=== PATIENT | female | born 1970 | race Native Hawaiian/Other Pacific Islander ===

== ENCOUNTER 2020-05-13 19:38 | Emergency (ER) | payer OTHER, MEDICAID, SELFPAY ==
[2020-05-13 19:42] VITALS: BP 154/72; PULSE 86; RESP 20; TEMP 36.3; O2SAT 99
[2020-05-13 19:54] VITALS: BP 150/73; PULSE 86; RESP 18; TEMP 36.3; O2SAT 96
--- NOTE | 2020-05-13 20:30 | ED.EAR ---
HPI - Ear Problem General Chief complaint: Ear Stated complaint: left ear pain Time Seen by Provider: 05/13/20 20:30 Source: patient Mode of arrival: Ambulatory Limitations: no limitations History of Present Illness HPI Narrative: The patient complains of left ear pain, intermittent for months. The pain is now persistent for the last several days. She has no drainage from the ear. The pain radiates to the left mandible. She has no URI symptoms, no sinus congestion, no allergies. She is a nonsmoker. She denies dental problems. She denies neck pain. She denies dysphagia. Related Data Previous Rx's Medication Instructions Recorded amoxicillin 500 mg PO TID #30 cap 05/13/20 Review of Systems Constitutional Constitutional: Denies chills, Denies fever(s) and Denies headache(s) Eyes Comments: No eye complaints ENT Ears, Nose, Mouth, and Throat: Denies dental pain, Denies ear discharge, Reports otalgia, Denies facial pain, Denies headache(s) and Denies sore throat Cardiovascular Cardiovascular: Denies chest pain and Denies dyspnea Respiratory Respiratory: Denies cough and Denies dyspnea Neurologic Neurologic: Denies headache(s) Patient History Medical History (Updated 05/13/20 @ 20:36 by Devonte Elder MD) Healthy adult Surgical History (Updated 05/13/20 @ 20:33 by Devonte Elder MD) No history of previous surgery Social History Smoking Status: Never smoker Smoking Status: Never smoker alcohol intake frequency: a few times a month Substance Use Type: does not use Exam Initial Vital Signs Initial Vital Signs: Vital Signs Temperature 97.4 F L 05/13/20 19:42 Pulse Rate 86 05/13/20 19:42 Respiratory Rate 20 05/13/20 19:42 Blood Pressure 154/72 H 05/13/20 19:42 Pulse Oximetry 99 05/13/20 19:42 Const General: cooperative and well developed Nutritional Appearance: well nourished [facility] Head: normal to inspection, normocephalic and atraumatic Ears: external ears normal and TM's normal bilaterally Nose: external nose normal Face and sinus: normal facial exam, sinuses tender and other (No mastoid tenderness.) Mouth: oral mucosae normal and lip normal Teeth and gingiva: other (Tenderness over tooth 17. #17 is only partially protruding from the gum.) Throat: posterior oropharynx normal Neck Neck: normal visual inspection, No anterior neck swelling and No lymphadenopathy Resp Auscultation: clear to auscultation bilaterally Cardio Rate: regular rate Rhythm: regular rhythm Heart Sounds: S1 normal, S2 normal, no click, no gallops, no murmurs and no rubs Pulses: normal peripheral pulses Course Vital Signs Vital signs: Vital Signs - 8 hr 05/13/20 19:42 05/13/20 19:54 Temperature 97.4 F L 97.4 F L Pulse Rate 86 86 Respiratory Rate 20 18 Blood Pressure 154/72 H 150/73 H Pulse Oximetry 99 96 Discharge Plan Departure Patient Disposition: Home Clinical Impression: Pain, dental Instructions: DI for Dental Pain Activity Restrictions/Additional Instructions: Amoxicillin 3 times daily as prescribed. Use Tylenol or Advil as needed for pain. Schedule follow-up with your dentist. Return the ER if you develop increasing pain, fever, or facial swelling. Prescriptions: New amoxicillin 500 mg capsule 500 mg PO TID Qty: 30 RF: 0
== END 2020-05-13 20:30 | disposition home or self-care (01) ==
PROVIDERS: Emergency Provider Emergency Medicine
DX: K08.89 Other specified disorders of teeth and supporting structures (principal)
CPT/HCPCS: 99281

== ENCOUNTER 2024-03-01 16:00 | Emergency (ER) | payer OTHER, SELFPAY ==
[2024-03-01 16:13] VITALS: BP 207/95; PULSE 72; RESP 18; TEMP 36.6; O2SAT 97; BMI 27.4
--- NOTE | 2024-03-01 18:16 | DI.RAD.S_ITS ---
PROCEDURE: XR FOREARM RT 2V INDICATIONS: fall on Left knee, rUE TECHNIQUE: 2 views of the forearm were acquired. COMPARISON: None. FINDINGS: Bones: No fractures or dislocations. No suspicious bony lesions. Soft tissues: No suspicious soft tissue calcifications or masses. IMPRESSION: No acute fracture demonstrated. Dictated by: Rene Shepard M.D. on 03/01/2024 at 19:47 Approved by: Rene Shepard M.D. on 03/01/2024 at 19:51
--- NOTE | 2024-03-01 18:16 | DI.RAD.S_ITS ---
PROCEDURE: XR HAND RT MIN 3V INDICATIONS: fall on Left knee, rUE TECHNIQUE: 3 views of the hand(s) acquired. COMPARISON: [facility], CR, XR FOREARM RT 2V, 03/01/2024, 18:22. FINDINGS: Bones: No fractures or dislocations. Carpal bones are normally aligned. No suspicious bony lesions. Soft tissues: No suspicious soft tissue calcifications. IMPRESSION: No acute bony abnormality. Dictated by: Rene Shepard M.D. on 03/01/2024 at 20:47 Approved by: Rene Shepard M.D. on 03/01/2024 at 20:48
--- NOTE | 2024-03-01 18:16 | DI.RAD.S_ITS ---
PROCEDURE: XR KNEE LT 3V INDICATIONS: fall on Left knee, rUE TECHNIQUE: 3 views of the knee were acquired. COMPARISON: None. FINDINGS: Bones: No fractures or dislocations. No suspicious bony lesions. Osteophytic lipping at the patella. Soft tissues: No significant joint effusion. No suspicious soft tissue calcifications. No radiopaque foreign body. IMPRESSION: No acute bony abnormality or significant effusion. Dictated by: Rene Shepard M.D. on 03/01/2024 at 20:48 Approved by: Rene Shepard M.D. on 03/01/2024 at 20:49
[2024-03-01 22:09] VITALS: BP 197/86; PULSE 83; RESP 20; O2SAT 98
[2024-03-02 00:22] VITALS: BP 181/82; PULSE 74; O2SAT 95
[2024-03-02 00:30] VITALS: BP 174/66; PULSE 79; O2SAT 96
[2024-03-02 01:00] VITALS: BP 165/77; PULSE 86; O2SAT 96
--- NOTE | 2024-03-02 01:08 | PC.NURSE ---
Dr. Berger at bedside
--- NOTE | 2024-03-02 01:09 | ED.LOWEXIN ---
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 She had not black out. She has no nausea or vomiting. No weakness to face arm or leg. She has dressing applied to the left abrasion of the knee. He has been able to ambulate. She is here for assessment of injuries and work note. Related Data Previous Rx's Medication Instructions Recorded amoxicillin 500 mg capsule 500 mg PO TID #30 caps 05/13/20 Allergies Allergy/AdvReac Type Severity Reaction Status Date / Time No Known Drug Allergies Allergy Verified 03/01/24 16:13 Patient History Medical History (Updated 03/02/24 @ 01:49 by Ever Berger MD) Healthy adult Surgical History (Updated 05/13/20 @ 20:33 by Devonte Elder MD) No history of previous surgery Social History Smoking Status: Never smoker Smoking Status: Never smoker alcohol intake frequency: a few times a month Exam Narrative Exam Narrative: GENERAL: Well-developed patient, in mild distress. HEAD: Right forehead small contusion, no crepitance, no abrasion/laceration skin. EYES: Pupils equal round and reactive. Extraocular motions intact. No scleral icterus. No injection or drainage. ENT: Nose without bleeding, purulent drainage. Throat without erythema, tonsillar hypertrophy or exudate. Airway patent. NECK: Trachea midline. Non tender CARDIOVASCULAR: Regular rate and rhythm without murmurs, gallops, or rubs. RESPIRATORY: Clear to auscultation. Breath sounds equal bilaterally. No wheezes, rales, or rhonchi. GASTROINTESTINAL: Abdomen soft, non-tender, nondistended. EXTREMITIES: Left knee with small abrasion, no medial or lateral joint line tenderness, no effusion obvious. Right hand wrist crease area tenderness without skin changes. Right elbow tenderness, without gross deformity, normal flex/extension, no skin changes. BACK: Nontender without deformity or crepitance. No flank tenderness. NEURO: AOx3. Motor functions grossly nonfocal SKIN: No rash or erythema of visible areas Initial Vital Signs Initial Vital Signs: Vital Signs Temperature 97.9 F 03/01/24 16:13 Pulse Rate 72 03/01/24 16:13 Respiratory Rate 18 03/01/24 16:13 Blood Pressure 207/95 H 03/01/24 16:13 Pulse Oximetry 97 03/01/24 16:13 Oxygen Delivery Method Room Air 03/01/24 16:13 Course Orders Ordered: Discontinued Medications Bacitracin (Bacitracin Oint 0.9 Gm Pckt) 1 applic TOP NOW ONE Stop: 03/02/24 02:07 Last Admin: 03/02/24 02:10 Dose: 1 applic Documented By: GABRIELA Vital Signs Vital signs: Vital Signs - 8 hr 03/02/24 00:22 03/02/24 00:22 03/02/24 00:30 Pulse Rate 74 79 Blood Pressure 181/82 H Pulse Oximetry 95 96 Oxygen Delivery Method Room Air 03/02/24 00:30 03/02/24 01:00 03/02/24 01:00 Pulse Rate 86 Blood Pressure 174/66 H 165/77 H Pulse Oximetry 96 Oxygen Delivery Method Room Air MDM - Extremity Injury (Lower) Imaging Data Extremity x-ray #1: Radiologist's Impression: [address] [address] XRay Report Signed Patient: Amelia Gleason MR#: [id number] : 1970 Acct:[id number] Age/Sex: 53 / F Date of Service: 03/01/24 Loc: ED Accession Number: [id number] Procedure: XR forearm RT 2V Ordering Provider: Ever Berger MD PROCEDURE: XR FOREARM RT 2V INDICATIONS: fall on Left knee, rUE TECHNIQUE: 2 views of the forearm were acquired. COMPARISON: None. FINDINGS: Bones: No fractures or dislocations. No suspicious bony lesions. Soft tissues: No suspicious soft tissue calcifications or masses. IMPRESSION: No acute fracture demonstrated. Dictated by: Rene Shepard M.D. on 03/01/2024 at 19:47 Approved by: Rene Shepard M.D. on 03/01/2024 at 19:51 Extremity x-ray #2: Radiologist's Impression: [address] [address] XRay Report Signed Patient: Amelia Gleason MR#: [id number] : 1970 Acct:[id number] Age/Sex: 53 / F Date of Service: 03/01/24 Loc: ED Accession Number: [id number] Procedure: XR knee LT 3V Ordering Provider: Ever Berger MD PROCEDURE: XR KNEE LT 3V INDICATIONS: fall on Left knee, rUE TECHNIQUE: 3 views of the knee were acquired. COMPARISON: None. FINDINGS: Bones: No fractures or dislocations. No suspicious bony lesions. Osteophytic lipping at the patella. Soft tissues: No significant joint effusion. No suspicious soft tissue calcifications. No radiopaque foreign body. IMPRESSION: No acute bony abnormality or significant effusion. Dictated by: Rene Shepard M.D. on 03/01/2024 at 20:48 Approved by: Rene Shepard M.D. on 03/01/2024 at 20:49 Extremity x-ray #3: Radiologist's Impression: [address] [address] XRay Report Signed Patient: Amelia Gleason MR#: [id number] : 1970 Acct:[id number] Age/Sex: 53 / F Date of Service: 03/01/24 Loc: ED Accession Number: [id number] Procedure: XR hand RT min 3V Ordering Provider: Ever Berger MD PROCEDURE: XR HAND RT MIN 3V INDICATIONS: fall on Left knee, rUE TECHNIQUE: 3 views of the hand(s) acquired. COMPARISON: [facility], , XR FOREARM RT 2V, 03/01/2024, 18:22. FINDINGS: Bones: No fractures or dislocations. Carpal bones are normally aligned. No suspicious bony lesions. Soft tissues: No suspicious soft tissue calcifications. IMPRESSION: No acute bony abnormality. Dictated by: Rene Shepard M.D. on 03/01/2024 at 20:47 Approved by: Rene Shepard M.D. on 03/01/2024 at 20:48 MDM Narrative Medical decision making narrative: GLF with mild forehead abrasion, no advanced Head/Face imaging indicated. Small left knee abrasion dressed with abx ointment, XR negative per radiology report. Right hand and elbow XRays negative. Advised use OTC motrin/tylenol for pain control, abx ointment to L knee abrasion. Advised off work for two days then reassessment Monday03/04/24 with PCP. WOrk note given. Work injury forms filled out from her company. DC home. Return precautions discussed. Discharge Plan Departure Patient Disposition: Home Clinical Impression: Fall from ground level, Contusion of right wrist, Contusion of right elbow, Abrasion of left knee, Contusion of left knee, Forehead contusion Activity Restrictions/Additional Instructions: Ground level fall at work yesterday, right forehead contusion, no loss of consciousness, no neurological sequelae, no nausea or vomiting. No advanced imaging of the brain indicated at this time. Also abrasion from the fall to the left anterior knee, x-rays negative for fracture injuries, local wound care and antibiotic ointment, continue antibiotic ointment at home. You been able to bear weight on this. X-rays of the right wrist/hand area negative for fractures. X-rays of the right elbow area without obvious fractures. Off work today Monday and tomorrow Monday advised. Recheck with your regular doctor advised on Monday03/04/2024, for further assessment of work duty capability. Take Tylenol and or Motrin as needed for pain control. Return earlier to this/nearest emergency department for any change worsening symptoms or any concerns prior Prescriptions: No Action amoxicillin 500 mg capsule 500 mg PO TID Qty: 30 0RF Referrals: Miscellaneous,Doctor, MD [Primary Care Provider] - Stand Alone Forms: Patient Portal/API/Survey
--- NOTE | 2024-03-02 01:41 | PC.NURSE ---
Soap, warm water, and wash rags provided to patient for wound cleansing of left knee abrasion.
[2024-03-02] MEDS: BACITRACIN OINT 0.9 GM PCKT 1 APPLIC TOP (02:10)
== END 2024-03-02 02:31 | disposition home or self-care (01) ==
PROVIDERS: Emergency Provider Emergency Medicine
DX: S60.211A Contusion of right wrist, initial encounter (principal); S80.02XA Contusion of left knee, initial encounter; S50.01XA Contusion of right elbow, initial encounter; S00.83XA Contusion of other part of head, initial encounter; S80.212A Abrasion, left knee, initial encounter; W01.0XXA Fall on same level from slipping, tripping and stumbling without subsequent striking against object, initial encounter; Y93.89 Activity, other specified; Y92.480 Sidewalk as the place of occurrence of the external cause
CPT/HCPCS: 73090; 73130; 73562; 99282; 99283